=== PATIENT | male | born 1980 ===

== ENCOUNTER → 2017-07-24 | Outpatient (CLI) | payer MEDICAID ==
[~2017-07-24] MED LIST: AMOX-362 PO; AMOX-559 PO; AMOX500T10 PO; ASPI-1017 PO; AUG875 PO; CIPR-214 PO; CLI150 PO; CLIN300C99 PO; CYCL10TA29 PO; HCTZ25 PO; HYDR-385 PO; HYDR-4309 PO; IBUP800T37 PO; KET10 PO; LOR5/325 PO; MET500 PO; METF-410 PO; NO MEDS; PER PO; TAMS0.4C25 PO; TRAM-420 PO
--- NOTE | 2017-07-24 16:52 | RADIOLOGY IMAGING REPORT ---
FACILITY: [facility] PATIENT NAME: Flako Armendariz : 1980 MR: [id number] V: [id number] EXAM DATE: ORDERING PHYSICIAN: JASMEET BERRIOS TECHNOLOGIST: Location: [facility] [place] Patient: Flako Armendariz : 1980 Visit/Account:[id number] Date of Sevice: 07/24/2017 Exam type: ANKLE 3 VIEW MIN LEFT History: Left ankle pain, no known injury, diabetic neuropathy Comparison: Left foot March 03, 2017. Findings: There is no evidence of acute fracture or dislocation involving the left ankle. Moderate degenerativ e changes are seen along the dorsal aspect of the talonavicular joint. Moderate vascular calcificati ons are seen in the adjacent soft tissues about the left ankle. IMPRESSION: 1. Moderate degenerative changes along the dorsal aspect of the left talonavicular joint. Moderate vascular calcifications in the adjacent soft tissues about the left ankle. Report Dictated By: Chasity Hernandez MD at 07/24/2017 4:45 PM Report E-Signed By: Chasity Hernandez MD at 07/24/2017 4:48 PM WSN:[email or web address]
== END ==
LOC: RAD 16:16
PROVIDERS: ATTEND Physician Assistant Medical
DX: M19.072 Primary osteoarthritis, left ankle and foot (principal); I70.8 Atherosclerosis of other arteries

== ENCOUNTER 2017-12-22 19:55 | Emergency (ER) | payer MEDICAID ==
[~2017-12-22 19:55] MED LIST changes: -METF-410 PO; +METF-411 PO
[2017-12-22] MEDS ORDERED: ATOR10TA24 PO (20:04)
--- NOTE | 2017-12-22 20:09 | ER Report ---
History and Physical Time Seen By MD: 20:04 Hx. of Stated Complaint: Pt was moving wood today and is unsure if he crushed left middle knuckle. capillary refill distal to injury is within normal limits. No swelling or obvious deformity at this time. Movement is limited for pain. HPI/ROS CHIEF COMPLAINT: Left hand injury HISTORY OF PRESENT ILLNESS: This is a 37-year-old male presents to the emergency department for a left hand injury. Patient states that about 4:00 this afternoon he was cutting and stacking wood, with his gloved hand a piece of wood rolled down smashing his left hand between another piece of wood. Patient states that throughout the evening the pain and swelling has increased, with the majority of the pain around the base of the middle finger into the palm. Decreased movement with the middle and index fingers. Sensation intact. No other complaints. REVIEW OF SYSTEMS: Respiratory: No cough, no dyspnea. Cardiovascular: No chest pain, no palpitations. Gastrointestinal: No vomiting, no abdominal pain. Musculoskeletal: As above. Allergies: Coded Allergies: cucumber (Verified Allergy, Severe, ANAPHYLAXIS, 03/03/17) Home Meds Reported Medications Atorvastatin Calcium (LIPITOR) 10 Mg Tablet, 0.5 TAB PO QDAY, TAB 12/22/17 Metformin Hcl (METFORMIN HCL) 500 Mg Tablet, 1 TAB PO BID, TAB 02/16/17 Discontinued Scripts Ketorolac Tromethamine (KETOROLAC TROMETHAMINE) 10 Mg Tab, 10 MG PO Q6H, #20 TAB Prov:LUIS LOYD [employer] 03/03/17 Past Medical/Surgical History The patient has a past medical and surgical history of GERD, left wrist fracture , chronic back pain, type II diabetes, eczema, left anterior cruciate ligament. Reviewed Nurses Notes: Yes Hx Smoking: No Smoking Status: Former Smoker Exposure to Second Hand Smoke?: No Hx Substance Use Disorder: No Hx Alcohol Use: No Constitutional Vital Sign - Last 24 Hours 12/22/17 12/22/17 12/22/17 12/22/17 19:58 19:59 20:00 20:10 Temp 98.7 Pulse 95 82 Resp 20 B/P (MAP) 131/84 (100) 131/84 125/77 (93) Pulse Ox 93 93 O2 Delivery Room Air 12/22/17 12/22/17 20:25 20:30 Pulse 87 B/P (MAP) 123/79 (94) Pulse Ox 91 Physical Exam General Appearance: The patient is alert, has no immediate need for airway protection and no current signs of toxicity. Eyes: Pupils equal and round no injection. Respiratory: Chest is non tender, lungs are clear to auscultation. Cardiac: regular rate and rhythm. Gastrointestinal: Abdomen is soft and non tender, no masses, bowel sounds normal. Musculoskeletal: Neck: Neck is supple and non tender. Extremities pain to the left middle finger into the palm. Mild swelling noted at the base of the middle finger, no crepitus or obvious deformities. Pain noted in the palm with flexion and extension of the left middle finger. Skin: No rashes or lesions. DIFFERENTIAL DIAGNOSIS: After history and physical exam differential diagnosis was considered for contusion, fracture, and dislocation. Medical Decision Making EKG/Imaging Imaging Location: [facility] Patient: Flako Armendariz : 1980 Visit/Account:[id number] Date of Sevice: 12/22/2017 HAND COMPLETE LEFT COMPARISONS: None. ADDITIONAL PERTINENT HISTORY: Hand versus log FINDINGS: Osseous structures: Negative. Joint spaces: Negative. Surrounding soft tissues: Mild soft tissue swelling involving the soft tissues overlying the fifth metacarpal. IMPRESSION: 1. No acute appearing bony abnormality is. 2. Soft tissue swelling about the left hand. Report Dictated By: Meliton Cazares MD at 12/22/2017 8:53 PM Report E-Signed By: Meliton Cazares MD at 12/22/2017 8:55 PM WSN:[id number] ED Course/Re-evaluation ED Course The patient was admitted to room. A history and physical were obtained. Differential diagnoses were considered. X-ray of the left hand was negative for any acute osseous abnormalities. I did review these results with the patient, did tell him that this is a contusion and will likely be painful for several Days. take ibuprofen or Tylenol as needed for pain. He was placed in a splint for comfort. Return to the emergency department for any other concerns or worsening symptoms. Decision to Disposition Date: Dec 22, 2017 Decision to Disposition Time: 21:10 Depart Departure Latest Vital Signs Vital Signs Date Time Temp Pulse Resp B/P (MAP) Pulse Ox O2 Delivery O2 Flow Rate FiO2 8/4/18 20:30 123/79 (94) 12/22/17 20:25 87 91 12/22/17 19:59 98.7 20 Room Air Core Temperature (Celsius): 36.28 Impression: Primary Impression: Contusion of left hand Condition: Improved Disposition: HOME OR SELF-CARE Patient Instructions: Contusion in Adults (ED) Additional Instructions: Keep the splint on for comfort. Take Ibuprofen or Tylenol as needed for pain. Drink plenty of water. Get plenty of rest. Return to the ED for any other concerns or worsening symptoms. Problem Qualifiers Primary Impression: Contusion of left hand Encounter type: initial encounter Qualified Codes: S60.222A - Contusion of left hand, initial encounter STEPHANIE GARCIAP-BC Dec 22, 2017 20:09
[2017-12-22 20:30] VITALS: BP 123/79
--- NOTE | 2017-12-22 20:59 | RADIOLOGY IMAGING REPORT ---
FACILITY: [facility] PATIENT NAME: Flako Armendariz : 1980 MR: [id number] V: [id number] EXAM DATE: ORDERING PHYSICIAN: STEPHANIE GARCIA TECHNOLOGIST: Location: [facility] - [place] Patient: Flako Armendariz : 1980 Visit/Account:[id number] Date of Sevice: 12/22/2017 HAND COMPLETE LEFT COMPARISONS: None. ADDITIONAL PERTINENT HISTORY: Hand versus log FINDINGS: Osseous structures: Negative. Joint spaces: Negative. Surrounding soft tissues: Mild soft tissue swelling involving the soft tissues overlying the fifth me tacarpal. IMPRESSION: 1. No acute appearing bony abnormality is. 2. Soft tissue swelling about the left hand. Report Dictated By: Meliton Cazares MD at 12/22/2017 8:53 PM Report E-Signed By: Meliton Cazares MD at 12/22/2017 8:55 PM WSN:[id number]
[2017-12-22] MEDS ORDERED: IBUPROFEN 800 MG TAB PO ONE (21:10)
== END 2017-12-22 21:22 | disposition home or self-care (01) ==
LOC: ER 19:59
DX: S60.222A Contusion of left hand, initial encounter (principal); W23.0XXA Caught, crushed, jammed, or pinched between moving objects, initial encounter; K21.9 Gastro-esophageal reflux disease without esophagitis; E11.9 Type 2 diabetes mellitus without complications; Z79.84 Long term (current) use of oral hypoglycemic drugs; Z87.891 Personal history of nicotine dependence
CPT/HCPCS: 73130; 99283; L3763; L3908

== ENCOUNTER → 2018-03-12 | Outpatient (REF) | payer MEDICAID ==
[~2018-03-12] MED LIST changes: +ATOR10TA24 PO; -HYDR-4309 PO; +HYDR-653 PO; -METF-411 PO; +METF-450 PO
== END ==
LOC: ZZSENDIN 13:46
PROVIDERS: ATTEND Physician Assistant Medical
DX: H57.11 Ocular pain, right eye (principal)
CPT/HCPCS: 85651

== ENCOUNTER 2018-03-14 00:53 | Outpatient (RCR) | payer MEDICAID ==
--- NOTE | 2018-03-18 14:15 | RADIOLOGY IMAGING REPORT ---
[place] [facility] [place] Flako Armendariz : 1980 MR: [id number] V: [id number] EXAM DATE: ORDERING PHYSICIAN: JASMEET BERRIOS TECHNOLOGIST: Location: [facility] Patient: Flako Armendariz : 1980 Visit/Account:[id number] Date of Sevice: 03/18/2018 Exam type: ORBITS FOREIGN BODY 1 VIEW History: Pre-MRI screening Comparison: None. Findings: No radiopaque metallic foreign bodies project over the orbits IMPRESSION: 1. No radiopaque metallic foreign bodies project over the orbits Report Dictated By: Chasity Hernandez MD at 03/18/2018 2:09 PM Report E-Signed By: Chasity Hernandez MD at 03/18/2018 2:10 PM WSN:[email or web address]
[2018-03-18] MEDS ORDERED: GADOBENATE 529MG/1ML 15ML VIAL IVP ONE (14:40)
--- NOTE | 2018-03-18 17:53 | RADIOLOGY IMAGING REPORT ---
[facility] PATIENT NAME: Flako Armendariz : 1980 MR: [id number] V: [id number] EXAM DATE: [id number] ORDERING PHYSICIAN: JASMEET BERRIOS TECHNOLOGIST: Location: [facility] Patient: Flako Armendariz : 1980 Visit/Account:[id number] Date of Sevice: 03/18/2018 EXAMINATION: MRI Brain without intravenous contrast MRI Brain with intravenous contrast HISTORY: Seizure. COMPARISON: None available. TECHNIQUE: Multi-planar, multi-sequence brain MRI was performed before and after IV gadolinium. CONTRAST: 15 mL of IV MultiHance FINDINGS: Brain volume: Normal. Sagittal midline structures: Negative. Ventricles: Negative. Acute ischemic changes: None. Hemorrhage: None. Masses / edema: 9 x 4 mm FLAIR hyperintensity in the left anterior temporal lobe with central flair hypointensity (series 8, image 8). No abnormal enhancement or restricted diffusion. No significant ma ss effect. Enhancement: Negative. Presley-white: Otherwise negative. White matter: Otherwise negative. Vessels: Negative. Extra-axial: Negative. Calvarium / scalp: Negative. Skull base: Negative. Visualized sinuses / orbits: Mild mucosal thickening in the paranasal sinuses. Leftward nasal septal deviation. Visualized upper neck: Negative. IMPRESSION: 1. 9 x 4 mm focus of FLAIR hyperintensity and central hypointensity in the left anterior temporal lob e (series 8, image 8) with no restricted diffusion or enhancement. No significant mass effect. The di fferential includes encephalomalacia/gliosis, nonspecific white matter lesion, nonenhancing brain zac or, and cortical dysplasia. Comparison with any prior brain MRI or CT is recommended if available. 2. Mild mucosal thickening in the paranasal sinuses with leftward nasal septal deviation. 3. Otherwise normal brain MRI without and with IV contrast. Report Dictated By: James Mcmahon MD at 03/18/2018 5:42 PM Report E-Signed By: James Mcmahon MD at 03/18/2018 5:49 PM WSN:[email or web address]
== END 2018-03-18 18:00 | disposition home or self-care (01) ==
LOC: MRI 00:53 → EDSTATUS 10:00 → MRI 03-18 18:00
PROVIDERS: ATTEND Physician Assistant Medical
DX: R56.9 Unspecified convulsions (principal)
CPT/HCPCS: 70030; 70553; 95819; A9577

== ENCOUNTER 2018-05-25 19:19 | Emergency (ER) | payer MEDICAID ==
--- NOTE | 2018-05-25 19:26 | ER Report ---
History and Physical Time Seen By MD: 19:26 Hx. of Stated Complaint: patient states he slipped and fell on sunday, landing on his left knee, patient having pain in knee, and worried because he has had surgery on knee and has "bolts" in knee. HPI/ROS CHIEF COMPLAINT: Left knee pain HISTORY OF PRESENT ILLNESS: 37-year-old male patient presents to the emergency room with complaint of left knee pain. Patient states that on Sunday of this week he was going out to go to work and slipped on the ice. He states he landed hard on his left knee. He states that the right leg did go out in front of him. He states that since then he's been having significant amounts of pain. He states it did swell up but that has resolved. Patient states that he is concerned because he is having so much pain. He denies any new numbness or tingling, patient states he always has neuropathy to that left leg. Patient states he is not taking any medication for this. He states he did alternate ice and heat. REVIEW OF SYSTEMS: Respiratory: No cough, no dyspnea. Cardiovascular: No chest pain, no palpitations. Gastrointestinal: No vomiting, no abdominal pain. Musculoskeletal: As noted above Allergies: Coded Allergies: cucumber (Verified Allergy, Severe, ANAPHYLAXIS, 05/25/18) Home Meds Reported Medications Tramadol Hcl (TRAMADOL HCL) 50 Mg Tablet, 50-100 MG PO Q4-6H, TAB 05/25/18 Atorvastatin Calcium (LIPITOR) 10 Mg Tablet, 0.5 TAB PO QDAY, TAB 12/22/17 Metformin Hcl (METFORMIN HCL) 500 Mg Tablet, 1 TAB PO BID, TAB 02/16/17 Past Medical/Surgical History Patient has a past medical history of reflux, left wrist fracture, back pain, type 2 diabetes, eczema. Patient has a surgical history of left knee surgery. Patient has a family medical history of cancer, CAD, stroke, diabetes Reviewed Nurses Notes: Yes Hx Smoking: No Smoking Status: Former Smoker Exposure to Second Hand Smoke?: No Hx Substance Use Disorder: No Hx Alcohol Use: No Constitutional Vital Sign - Last 24 Hours 05/25/18 05/25/18 05/25/18 05/25/18 19:23 19:30 19:34 19:49 Temp 98.5 Pulse 96 ??? 89 Resp 16 B/P (MAP) 148/96 108/75 (86) Pulse Ox 90 88 87 O2 Delivery Room Air Physical Exam General Appearance: The patient is alert, has no immediate need for airway protection and no current signs of toxicity. Respiratory: Chest is non tender, lungs are clear to auscultation. Cardiac: regular rate and rhythm Gastrointestinal: Abdomen is soft and non tender, no masses, bowel sounds normal. Musculoskeletal: Neck: Neck is supple and non tender. Extremities have full range of motion and are non tender. She does have some tenderness to the left knee, there is no bruising, no swelling. Skin: No rashes or lesions. DIFFERENTIAL DIAGNOSIS: After history and physical exam differential diagnosis was considered for knee sprain, fracture, contusion. Medical Decision Making EKG/Imaging Imaging KNEE 4 VIEW LEFT Indication: Left knee pain after fall. Comparison: 02/16/2017. Findings: 4 views left knee were obtained. No acute fracture or dislocation. No joint effusion. No bony lesions. Changes from ACL reconstruction are stable without sequelae. Mild degenerative change including mild joint space narrowing small osteophytes. These are stable. Soft tissues are unremarkable. IMPRESSION: 1.No acute osseous abnormality of the left knee Report Dictated By: Gary Ingram at 05/25/2018 8:31 PM Report E-Signed By: Gary Ingram at 05/25/2018 8:33 PM TIBIA FIBULA LEFT Indication: Left lower leg pain after fall. Comparison: None available Findings: Two views left tibia and fibula show no evidence of fracture, dislocation, or acute osseous abnormality. No periosteal abnormality or or bony lesion. ACL reconstruction changes without sequelae. Soft tissues show vascular calcifications. No evidence of radiopaque foreign body. IMPRESSION: No acute osseous abnormality left tibia/fibula Report Dictated By: Gary Ingram at 05/25/2018 8:34 PM Report E-Signed By: Gary Ingram at 05/25/2018 8:36 PM ED Course/Re-evaluation ED Course Patient was admitted to an exam room, history and physical were obtained. Differential diagnoses were considered. On examination lungs are clear, heart is regular, abdomen soft nontender. Patient does have tenderness to the left knee, specifically seems to be worse at the proximal tibia. And x-rays done of the left knee as well as the left tib-fib. The images were negative for fracture. I discussed the findings with the patient. We will go ahead and discharge him home this time. He is to take Tylenol and ibuprofen as it for pain. He is to go ahead and continue alternating heat and ice. Patient is to follow-up with his primary care provider in the next week if he is having persistent pain. Patient verbalized understanding and agreement with plan. Decision to Disposition Date: May 25, 2018 Decision to Disposition Time: 20:42 Depart Departure Latest Vital Signs Vital Signs Date Time Temp Pulse Resp B/P (MAP) Pulse Ox O2 Delivery O2 Flow Rate FiO2 05/25/18 19:49 89 87 05/25/18 19:30 108/75 (86) 05/25/18 19:23 98.5 16 Room Air Core Temperature (Celsius): 36.28 Impression: Primary Impression: Knee contusion Condition: Improved Disposition: HOME OR SELF-CARE Patient Instructions: Contusion in Adults (ED) Additional Instructions: Limit activity by pain. Take Tylenol or Ibuprofen as needed for pain. Return to the ER if condition worsens. Follow up with your primary care provider in the next week. Continue to alternate ice and heat to the knee. Problem Qualifiers Primary Impression: Knee contusion Encounter type: initial encounter Laterality: left Qualified Codes: S80.02XA - Contusion of left knee, initial encounter LUIS LOYD May 25, 2018 19:26
[2018-05-25] MEDS ORDERED: TRAM-420 PO (19:27)
[2018-05-25 20:30] VITALS: BP 129/79
--- NOTE | 2018-05-25 20:38 | RADIOLOGY IMAGING REPORT ---
FACILITY: [facility] [place] PATIENT NAME: Flako Armendariz : 1980 MR: [id number] V: [id number] EXAM DATE: ORDERING PHYSICIAN: LUIS LOYD TECHNOLOGIST: Location: [facility] Patient: Flako Armendariz : 1980 Visit/Account:[id number] Date of Sevice: 05/25/2018 KNEE 4 VIEW LEFT Indication: Left knee pain after fall. Comparison: 02/16/2017. Findings: 4 views left knee were obtained. No acute fracture or dislocation. No joint effusion. No bony lesions. Changes from ACL reconstruct ion are stable without sequelae. Mild degenerative change including mild joint space narrowing small osteophytes. These are stable. Soft tissues are unremarkable. IMPRESSION: 1.No acute osseous abnormality of the left knee Report Dictated By: Gary Ingram at 05/25/2018 8:31 PM Report E-Signed By: Gary Ingram at 05/25/2018 8:33 PM WSN:[id number]
--- NOTE | 2018-05-25 20:40 | RADIOLOGY IMAGING REPORT ---
FACILITY: [facility] PATIENT NAME: Flako Armendariz : 1980 MR: [id number] V: [id number] EXAM DATE: ORDERING PHYSICIAN: LUIS LOYD TECHNOLOGIST: Location: [facility] Patient: Flako Armendariz : 1980 Visit/Account:[id number] Date of Sevice: 05/25/2018 TIBIA FIBULA LEFT Indication: Left lower leg pain after fall. Comparison: None available Findings: Two views left tibia and fibula show no evidence of fracture, dislocation, or acute osseous abnormal ity. No periosteal abnormality or or bony lesion. ACL reconstruction changes without sequelae. Soft tissues show vascular calcifications. No evidence of radiopaque foreign body. IMPRESSION: No acute osseous abnormality left tibia/fibula Report Dictated By: Gary Ingram at 05/25/2018 8:34 PM Report E-Signed By: Gary Ingram at 05/25/2018 8:36 PM WSN:[id number]
== END 2018-05-25 20:51 | disposition home or self-care (01) ==
LOC: ER 19:31
DX: S80.02XA Contusion of left knee, initial encounter (principal); W00.0XXA Fall on same level due to ice and snow, initial encounter
CPT/HCPCS: 73564; 99284

== ENCOUNTER 2018-10-14 14:04 | Emergency (ER) | payer MEDICAID ==
[2018-10-14] MEDS ORDERED: PRE200PT GT (14:15)
--- NOTE | 2018-10-14 14:20 | ER Report ---
History and Physical Time Seen By MD: 14:20 Hx. of Stated Complaint: CHILD FELL ON FOOT AND PT FELT ANKLE POP AND FELT PAIN HPI/ROS CHIEF COMPLAINT: Left ankle pain HISTORY OF PRESENT ILLNESS: 38-year-old male patient presents to emergency room with complaint of left ankle pain. Patient states that he had gotten into the house, sat down in his chair and had his foot resting up under his knee. He had his son, Dave on his lap. His son went to slide off his ladder slid down his left leg which was resting on his right knee. He states that he had a twisting sensation of the left ankle and since then has been having significant amounts of pain. He states that he is not been able to bear weight or to ambulate. He states he is not taking any medication for this. He states he has noticed some swelling to the medial aspect of the left foot. Patient does have a history of neuropathy and states that he has no sensation to the foot at this time. He states that son abnormal. REVIEW OF SYSTEMS: Respiratory: No cough, no dyspnea. Cardiovascular: No chest pain, no palpitations. Gastrointestinal: No vomiting, no abdominal pain. 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 Patient has a surgical history of left knee surgery. Patient has a family medical history of cancer, CAD, stroke, diabetes. Reviewed Nurses Notes: Yes Hx Smoking: No Smoking Status: Former Smoker Exposure to Second Hand Smoke?: No Hx Substance Use Disorder: No Hx Alcohol Use: No Constitutional Vital Sign - Last 24 Hours 10/14/18 10/14/18 14:15 15:30 Temp 98.6 Pulse 91 Resp 20 B/P (MAP) 138/96 116/87 (97) Pulse Ox 91 Physical Exam General Appearance: The patient is alert, has no immediate need for airway protection and no current signs of toxicity. Respiratory: Chest is non tender, lungs are clear to auscultation. Cardiac: regular rate and rhythm Gastrointestinal: Abdomen is soft and non tender, no masses, bowel sounds normal. Musculoskeletal: Neck: Neck is supple and non tender. Extremities have full range of motion and are non tender. Patient has tenderness and swelling to the medial aspect of the left ankle. He has sensation to the bottom of his foot although he states that he can feel pressure but not the touch itself. Capillary refill is brisk. Skin: No rashes or lesions. DIFFERENTIAL DIAGNOSIS: After history and physical exam differential diagnosis was considered for fracture, contusion, sprain. Medical Decision Making EKG/Imaging Imaging ANKLE 3 VIEW MIN LEFT HISTORY: child slid on lower leg, popping and pain Three-view examination of left ankle. FINDINGS: No acute fracture the distal tibia or fibula. Ankle mortise well-maintained. No talar dome injury or osteochondral defect. The talus calcaneus and mid foot structures are well-maintained other than degenerative changes along the dorsal talar navicular joint.. No joint effusion. Atherosclerotic disease in the periarticular vessels. IMPRESSION: 1. Negative left ankle for acute bony pathology. No interval change when compared to previous study Report Dictated By: Magdi Avila MD at 10/14/2018 3:04 PM Report E-Signed By: Magdi Avila MD at 10/14/2018 3:13 PM FOOT 3 VIEW LEFT Indication: Foot versus child Comparison: None Available Findings: 3 views of the left foot were obtained. No evidence of fracture, dislocation, or acute osseous abnormality of the left foot. There is no focal soft tissue abnormality. No evidence of radiopaque foreign body. Atherosclerotic vascular disease. IMPRESSION: 1.No acute osseous abnormality of the left foot Report Dictated By: Gary Xiong MD at 10/14/2018 3:03 PM Report E-Signed By: Gary Xiong MD at 10/14/2018 3:04 PM ED Course/Re-evaluation ED Course Patient was admitted to an exam room, history and physical were obtained. Differential diagnoses were considered. On examination lungs are clear, heart is regular, abdomen is soft and nontender. Patient does have tenderness to the medi al aspect of the left ankle as well as some swelling. X-rays were done of the left foot and left ankle. Those were read by the radiologist as negative. I discussed the findings with the patient. Informed him of this appears to be in ankle sprain. I did wrap him in an Donta wrap. Patient tolerated procedure well. We did have the patient get up and try to annular. He is not able to ambulate on his own. We will go ahead and give him crutches he is for the next couple of days. Patient requested note for his work and receive excuse for today, tomorrow and Sunday. He is to return on his next scheduled shift. Patient verbalized understanding and agreement with plan. Decision to Disposition Date: October 14, 2018 Decision to Disposition Time: 15:36 Depart Departure Latest Vital Signs Vital Signs Date Time Temp Pulse Resp B/P (MAP) Pulse Ox O2 Delivery O2 Flow Rate FiO2 10/14/18 15:30 116/87 (97) 10/14/18 14:15 98.6 91 20 91 Core Temperature (Celsius): 36.28 Impression: Primary Impression: Ankle sprain Condition: Improved Disposition: HOME OR SELF-CARE Patient Instructions: Ankle Sprain (ED) Additional Instructions: Limit activity by pain. Ice the ankle 2-3 times a day for 10-15 minutes. Get plenty of rest. Follow up with your primary care provider in the next week. Return to the ER if condition worsens. Use the crutches for the next 2 days and then bear weight as tolerated. Take Tylenol or Ibuprofen as needed for pain. Problem Qualifiers Primary Impression: Ankle sprain Encounter type: initial encounter Involved ligament of ankle: unspecified ligament Laterality: left Qualified Codes: S93.402A - Sprain of unspecified ligament of left ankle, initial encounter LUIS LOYD October 14, 2018 14:20
--- NOTE | 2018-10-14 15:09 | RADIOLOGY IMAGING REPORT ---
FACILITY: [facility] PATIENT NAME: Falko Armendariz : 1980 MR: [id number] V: [id number] EXAM DATE: ORDERING PHYSICIAN: LUIS LOYD TECHNOLOGIST: Location: [facility] [place] Patient: Flako Armendariz : 1980 Visit/Account:[id number] Date of Sevice: 10/14/2018 FOOT 3 VIEW LEFT Indication: Foot versus child Comparison: None Available Findings: 3 views of the left foot were obtained. No evidence of fracture, dislocation, or acute osseous abnormality of the left foot. There is no focal soft tissue abnormality. No evidence of radiopaque foreign body. Atherosclerotic vascular disease. IMPRESSION: 1.No acute osseous abnormality of the left foot Report Dictated By: Gary Xiong MD at 10/14/2018 3:03 PM Report E-Signed By: Gary Xiong MD at 10/14/2018 3:04 PM WSN:[id number]
--- NOTE | 2018-10-14 15:17 | RADIOLOGY IMAGING REPORT ---
FACILITY: [facility] PATIENT NAME: Flako Armendariz : 1980 MR: [id number] V: [id number] EXAM DATE: ORDERING PHYSICIAN: LUIS LOYD TECHNOLOGIST: Location: [facility] - [place], [place] Patient: Flako Armendariz : 1980 Visit/Account:[id number] Date of Sevice: 10/14/2018 ANKLE 3 VIEW MIN LEFT HISTORY: child slid on lower leg, popping and pain Three-view examination of left ankle. FINDINGS: No acute fracture the distal tibia or fibula. Ankle mortise well-maintained. No talar dome injury or osteochondral defect. The talus calcaneus and mid foot structures are well-maintained other than dege nerative changes along the dorsal talar navicular joint.. No joint effusion. Atherosclerotic disease in the periarticular vessels. IMPRESSION: 1. Negative left ankle for acute bony pathology. No interval change when compared to previous study Report Dictated By: Magdi Avila MD at 10/14/2018 3:04 PM Report E-Signed By: Magdi Avila MD at 10/14/2018 3:13 PM WSN:[id number]
[2018-10-14 15:30] VITALS: BP 116/87
== END 2018-10-14 15:50 | disposition home or self-care (01) ==
LOC: ER 14:13
DX: S93.402A Sprain of unspecified ligament of left ankle, initial encounter (principal)
CPT/HCPCS: 99284

== ENCOUNTER 2018-11-27 22:51 | Emergency (ER) | payer MEDICAID ==
[~2018-11-27 22:51] MED LIST changes: +PRE200PT PO
[2018-11-27 22:54] VITALS: BP 119/84
--- NOTE | 2018-11-27 23:07 | ER Report ---
History and Physical Time Seen By MD: 23:04 Hx. of Stated Complaint: patient started having pain/swellng in left ankle 7days ago, patient states not getting any better. HPI/ROS CHIEF COMPLAINT: leg pain and swelling HISTORY OF PRESENT ILLNESS: This is a 38 year old male. He has been having about 7 days of pain with some swelling on the anterior-medial aspect of the lower tibia of the left leg. Has neuropathy chronically in that leg, and chronic injuries. Seeing his primary care doctor for ankle train and currently doing physical therapy with KT tape. Area over the tibia bone that is swelling and firm and painful. No swelling in the rest of the calf or leg. No shortness of breath. No fevers or chills. No recent injury. Allergies: Coded Allergies: cucumber (Verified Allergy, Severe, ANAPHYLAXIS, 11/27/18) Home Meds Reported Medications Pregabalin (LYRICA) 200 Mg Cap, 200 MG PO QDAY, CAP 10/14/18 Tramadol Hcl (TRAMADOL HCL) 50 Mg Tablet, 100 MG PO BID, TAB 05/25/18 Atorvastatin Calcium (LIPITOR) 10 Mg Tablet, 0.5 TAB PO QDAY, TAB 12/22/17 Metformin Hcl (METFORMIN HCL) 500 Mg Tablet, 1 TAB PO BID, TAB 02/16/17 Reviewed Nurses Notes: Yes Hx Smoking: No Smoking Status: Former Smoker Exposure to Second Hand Smoke?: No Hx Substance Use Disorder: No Hx Alcohol Use: No Constitutional Vital Sign - Last 24 Hours 11/27/18 22:54 Temp 98.2 Pulse 81 Resp 20 B/P (MAP) 119/84 Pulse Ox 93 O2 Delivery Room Air Physical Exam General: Alert, no distress. Skin: No rash or lesions. Musculoskeletal: Small area about 4 cm in circumference just to the medial side over the tibia on left lower leg. Tender to palpation, firm feeling. Rest of the Tibia is non-tender. No tenderness in the ankle or foot. Neuro: Sensory problems from peripheral neuropathy, unchanged. Normal limited movement for him, at his baseline now. Cardiovascular: normal pulses and cap refill. Medical Decision Making EKG/Imaging Imaging TIBIA FIBULA LEFT COMPARISONS: None. ADDITIONAL PERTINENT HISTORY: Pain and lump along the distal tibia. FINDINGS: Osseous structures: Orthopedic screw traversing the proximal aspects of the left tibia. No bony fractures. Joint spaces: Negative. Surrounding soft tissues: Negative. IMPRESSION: No acute appearing bony abnormalities. Report Dictated By: Meliton Cazares MD at 11/28/2018 12:34 AM ED Course/Re-evaluation ED Course Reviewed the x-ray results with the patient. No bony abnormality noted. Recommended f/u with primary care or orthopedic surgery for further evaluation. Decision to Disposition Date: Nov 28, 2018 Decision to Disposition Time: 00:47 Depart Departure Latest Vital Signs Vital Signs Date Time Temp Pulse Resp B/P (MAP) Pulse Ox O2 Delivery O2 Flow Rate FiO2 11/27/18 22:54 98.2 81 20 119/84 93 Room Air Core Temperature (Celsius): 36.28 Impression: Primary Impression: Leg pain, left Condition: Improved Disposition: HOME OR SELF-CARE Referrals: GEE SMITH MD (PCP) Patient Instructions: Musculoskeletal Pain (ED) Additional Instructions: No problems noted with the bones on x-ray tonight. Recommend follow-up with Dr. Smith, or with orthopedic surgery. LIZET LUZ MD Nov 27, 2018 23:07
--- NOTE | 2018-11-28 00:40 | RADIOLOGY IMAGING REPORT ---
FACILITY: [facility] PATIENT NAME: Flako Armendariz : 1980 MR: [id number] V: [id number] EXAM DATE: ORDERING PHYSICIAN: LIZET LUZ TECHNOLOGIST: Location: [facility] Patient: Flako Armendariz : 1980 Visit/Account:[id number] Date of Sevice: 11/27/2018 TIBIA FIBULA LEFT COMPARISONS: None. ADDITIONAL PERTINENT HISTORY: Pain and lump along the distal tibia. FINDINGS: Osseous structures: Orthopedic screw traversing the proximal aspects of the left tibia. No bony fract ures. Joint spaces: Negative. Surrounding soft tissues: Negative. IMPRESSION: No acute appearing bony abnormalities. Report Dictated By: Meliton Cazares MD at 11/28/2018 12:34 AM Report E-Signed By: Meliton Cazares MD at 11/28/2018 12:34 AM WSN:[id number]
== END 2018-11-28 01:00 | disposition home or self-care (01) ==
LOC: ER 23:12
DX: M79.662 Pain in left lower leg (principal)
CPT/HCPCS: 99283

== ENCOUNTER 2019-01-02 09:40 | Emergency (ER) | payer MEDICAID ==
--- NOTE | 2019-01-02 09:48 | ER Report ---
History and Physical Time Seen By MD: 09:43 HPI/ROS CHIEF COMPLAINT: L shoulder pain HISTORY OF PRESENT ILLNESS: Patient is a 38 yo M who presents with L shoulder pain that radiates down the upper arm. 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 He felt a little sore and tired that evening, but on Sunday the pain in the L shoulder and arm was worse, with decreased range of motion of the L shoulder and decrease in gum remover strength. He tried using a shoulder sling which was somewhat helpful. Has not tried taking any analgesics. Today, he feels that the symptoms are worse, now notes mild swelling of the L hand and paresthesias. He reports history of dislocation of the L shoulder 4x and of the R shoulder 3x. REVIEW OF SYSTEMS: Constitutional: No fever, no chills. Eyes: No discharge. ENT: No sore throat. Cardiovascular: No chest pain, no palpitations. Respiratory: No cough, no shortness of breath. Gastrointestinal: No abdominal pain, no vomiting. Genitourinary: No hematuria. Musculoskeletal: No back pain. Skin: No rashes. Neurological: No headache. Allergies: Coded Allergies: cucumber (Verified Allergy, Severe, ANAPHYLAXIS, 11/27/18) Home Meds Reported Medications Pregabalin (LYRICA) 200 Mg Cap, 200 MG PO QDAY, CAP 10/14/18 Atorvastatin Calcium (LIPITOR) 10 Mg Tablet, 0.5 TAB PO QDAY, TAB 12/22/17 Metformin Hcl (METFORMIN HCL) 500 Mg Tablet, 1 TAB PO BID, TAB 02/16/17 Discontinued Reported Medications Tramadol Hcl (TRAMADOL HCL) 50 Mg Tablet, 100 MG PO BID, TAB 05/25/18 Hx Smoking: No Smoking Status: Former Smoker Exposure to Second Hand Smoke?: No Hx Substance Use Disorder: No Hx Alcohol Use: No Constitutional Vital Sign - Last 24 Hours 01/02/19 01/02/19 01/02/19 01/02/19 09:42 09:45 10:00 10:10 Temp 98.3 Pulse 60 Resp 18 B/P (MAP) 130/93 (105) 130/93 131/88 (102) Pulse Ox 91 91 O2 Delivery Room Air 01/02/19 01/02/19 10:30 10:40 Pulse 58 B/P (MAP) 144/77 (99) 125/87 (100) Pulse Ox 89 Physical Exam General Appearance: The patient is alert, has no immediate need for airway protection and no signs of toxicity. Eyes: Pupils equal and round no pallor or injection. ENT, Mouth: Mucous membranes are moist. Respiratory: There are no retractions, lungs are clear to auscultation. Cardiovascular: Regular rate and rhythm. Gastrointestinal: Abdomen is soft and non tender, no masses, bowel sounds normal. Neurological: Decreased muscle strength in L shoulder and decreased gum remover strength of L hand, decreased sensation to light touch over the c6-c8 dermatomes of the L hand Skin: Warm and dry, no rashes. Musculoskeletal: Neck is supple non tender. Tenderness noted at L scapular area and L shoulder. No neck or elbow tenderness. Patient unable to lift arm at shoulder, can bend elbow and move fingers with decreased active range of motion. L hand is slightly swollen compared to the R. DIFFERENTIAL DIAGNOSIS: After history and physical exam differential diagnosis was considered for adhesive capsulitis, shoulder dislocation, tendonitis, nerve compression. Medical Decision Making EKG/Imaging Imaging Please see radiology report, no fractures or dislocations identified ED Course/Re-evaluation ED Course Patient is a 38-year-old male here with complaints of left shoulder pain with a history of prior dislocations. Patient did have full range of motion of the joint however had significant pain especially in the anterior and anterior lateral aspect of the shoulder. X-ray imaging showed no acute fractures or dislocations. Patient was given Toradol for analgesia. Patient was advised to take naproxen twice a day, tramadol as needed for breakthrough pain control. Return precautions were provided. Range of motion exercises recommended. CP follow-up recommended Decision to Disposition Date: Jan 02, 2019 Decision to Disposition Time: 10:52 Depart Departure Latest Vital Signs Vital Signs Date Time Temp Pulse Resp B/P (MAP) Pulse Ox O2 Delivery O2 Flow Rate FiO2 01/02/19 10:40 58 125/87 (100) 89 01/02/19 09:45 98.3 18 Room Air Core Temperature (Celsius): 36.28 Impression: Primary Impression: Left shoulder strain Condition: Improved Disposition: HOME OR SELF-CARE Referrals: GEE SMITH MD (PCP) New Scripts Tramadol Hcl (TRAMADOL HCL) 50 Mg Tablet 50 MG PO Q6H PRN for PAIN, #6 TAB 0 Refills Prov: ZACH MANNING DO 01/02/19 Departure Forms: ER Transition Record, Medications Reconciliation, Off Work/School Form, School or Work Release?: Work Number of days to be released: 2 Patient Portal Information Patient Instructions: Muscle Strain (ED) Additional Instructions: Please take naproxen twice daily, tramadol every 6-8 hours as needed for breakthrough pain control. Please return promptly if you develop worsening pain, numbness, fevers or chills. ZACH MANNING DO Jan 02, 2019 09:48
[2019-01-02] MEDS ORDERED: KETOROLAC 60 MG/2 ML VIAL IM ONE (10:20)
--- NOTE | 2019-01-02 10:50 | RADIOLOGY IMAGING REPORT ---
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 Findings: Three views of the left shoulder were submitted. There is no evidence of acute fracture dislocation or significant arthritic change involving the left shoulder. No evidence of a left AC joint separati on IMPRESSION: 1. No acute osteoarticular abnormality of the left shoulder seen Report Dictated By: Chasity Hernandez MD at 01/02/2019 10:38 AM Report E-Signed By: Chasity Hernandez MD at 01/02/2019 10:39 AM WSN:[id number]
[2019-01-02] MEDS ORDERED: TRAM-420 PO (10:59)
[2019-01-02 11:13] VITALS: BP 138/85
== END 2019-01-02 11:13 | disposition home or self-care (01) ==
LOC: ER 09:53
DX: M25.512 Pain in left shoulder (principal)
CPT/HCPCS: 73030; 96372; 99283; J1885